=== PATIENT | female | born 1940 | race Caucasian/White ===

== ENCOUNTER 2020-05-08 16:23 | Emergency (ER) | payer MEDICARE, OTHER ==
[2020-05-08] MEDS ORDERED: Sodium Chloride 0.9% 10 ML Syringe FLUSH PRN (17:25)
[2020-05-08] MEDS ORDERED: Iopamidol 755 Mg/ML 75 ML Bottle IV ONE (18:28)
[2020-05-08] MEDS ORDERED: Ondansetron 4 MG/2 ML SDV IVPUSH STA (18:44)
[2020-05-08] MEDS ORDERED: Ondansetron 4 MG/2 ML SDV ONE (18:47)
[2020-05-08] MEDS ORDERED: Sodium Chloride 0.9% 1,000 ML IV SCH (19:15)
[2020-05-08] MEDS ORDERED: Metolazone 2.5 MG Tab PO STA (19:55)
[2020-05-08] MEDS ORDERED: Furosemide 20 MG/2 ML VIAL IVPUSH STA (19:55)
[2020-05-08] MEDS ORDERED: Ondansetron 4 MG/2 ML SDV IV PRN (20:33)
[2020-05-08] MEDS ORDERED: hydrALAZINE 20 MG/ML SDV IVPUSH STA (20:47)
[2020-05-08] MEDS ORDERED: Enoxaparin 40 MG/0.4 ML Syringe SUBCUT SCH (21:00)
[2020-05-08] MEDS ORDERED: Sulfamethoxazole/Trimethoprim 800-160 MG Tab PO SCH (21:00)
[2020-05-08] MEDS ORDERED: Enoxaparin 30 MG/0.3 ML Syringe SUBCUT SCH (21:00)
--- NOTE | 2020-05-08 21:19 | EDM.PDOC ---
ED HPI GENERAL MEDICAL PROBLEM - General Chief Complaint: Cardiovascular Problem Stated Complaint: SOB and edema Time Seen by Provider: 05/08/20 16:30 Source of Information: Reports: Patient, Family History Limitations: Reports: No Limitations - History of Present Illness INITIAL COMMENTS - FREE TEXT/NARRATIVE: Patient is an 80 YO F who presented to the ED because of dyspnea and lower extremity edema which started 2 weeks ago and is progressively getting worse even with mild physical activity. There is no chest pain, nausea,vomiting. There is no fever,chills,cough or cold symptoms. She has a history of HTN,Dyslipidemia, and DM type 2. - Related Data Allergies Allergy/AdvReac Type Severity Reaction Status Date / Time No Known Allergies Allergy Verified 05/08/20 17:43 Home Meds: Home Meds Glimepiride 1.5 tab PO DAILY 05/08/20 [History] Losartan [Cozaar] 1 tab PO DAILY 05/08/20 [History] Pioglitazone [Actos] 1 tab PO DAILY 05/08/20 [History] hydroCHLOROthiazide [Hydrochlorothiazide] 1 tab PO DAILY 05/08/20 [History] Past Medical History HEENT History: Reports: Cataract, Hard of Hearing, Impaired Vision, Other (See Below) Other HEENT History: hearing aids in and glasses on Cardiovascular History: Reports: High Cholesterol, Hypertension Endocrine/Metabolic History: Reports: Diabetes, Type II Hematologic History: Reports: Anemia Social & Family History - Tobacco Use Tobacco Use Status *Q: Never Tobacco User - Caffeine Use Caffeine Use: Reports: Coffee - Recreational Drug Use Recreational Drug Use: No ED ROS GENERAL - Review of Systems Review Of Systems: See Below Constitutional: Reports: Weakness, Fatigue HEENT: Reports: No Symptoms Respiratory: Reports: Shortness of Breath, Cough Cardiovascular: Reports: Edema Endocrine: Reports: No Symptoms GI/Abdominal: Reports: No Symptoms : Reports: No Symptoms Musculoskeletal: Reports: No Symptoms Skin: Reports: No Symptoms Neurological: Reports: No Symptoms Psychiatric: Reports: No Symptoms ED EXAM, GENERAL - Physical Exam Exam: See Below Exam Limited By: No Limitations General Appearance: Alert, No Apparent Distress Eye Exam: Bilateral Eye: PERRL Ears: Normal External Exam, Normal Canal Nose: Normal Inspection, Normal Mucosa, No Blood Throat/Mouth: Normal Inspection, Normal Lips Head: Atraumatic, Normocephalic Neck: Normal Inspection, Supple, Non-Tender Respiratory/Chest: No Respiratory Distress, Crackles Cardiovascular: Normal Peripheral Pulses, Regular Rate, Rhythm, No Edema, No Gallop, No JVD, No Murmur, No Rub GI/Abdominal: Normal Bowel Sounds, Soft, Non-Tender Back Exam: Normal Inspection, Full Range of Motion Extremities: Normal Inspection, Normal Range of Motion, Non-Tender, Pedal Edema Neurological: Alert, Oriented, CN II-XII Intact Psychiatric: Normal Affect Course - Vital Signs Text/Narrative:: Labs/EKG/Chest CT result was reviewed and discussed with patient NS 1 L bolus because of IV contrast use during the chest CT Lasix 40 mg IV x1 Zaroxolyn 2.5 mg po x1 Hydralazine 20 mg IV x1 Code Status: Full Code Case discussed with Dr Jonny Slater-negative Last Recorded V/S: Last Vital Signs Temp 36.9 C 05/08/20 16:25 Pulse 95 05/08/20 16:25 Resp 18 05/08/20 16:25 BP 164/74 H 05/08/20 16:25 Pulse Ox 100 05/08/20 16:25 - Orders/Labs/Meds Labs: Laboratory Tests 05/08/20 05/08/20 05/08/20 Range/Units 17:40 17:40 17:40 WBC 6.0 (3.0-10.3) x10-3/uL RBC 3.05 L (3.60-5.20) x10(6)uL Hgb 8.9 L (11.4-15.5) g/dL Hct 28.1 L (34.2-48.2) % MCV 92.0 (76.7-100.5) fL MCH 29.2 (23.9-33.9) pg MCHC 31.7 L (31.9-34.8) g/dL RDW 16.0 (12.3-16.5) % Plt Count 120 L (151-488) x10(3)uL MPV 9.3 (7.1-12.4) fL Neut % (Auto) 74.0 (30.8-76.2) % Lymph % (Auto) 13.0 L (18.4-52.1) % [place] % (Auto) 9.8 (4.4-15.7) % Eos % (Auto) 2.8 (0.6-8.1) % Baso % (Auto) 0.4 (0.2-1.5) % Neut # (Auto) 4.4 (1.5-6.3) x10-3/uL Lymph # (Auto) 0.8 L (1.0-4.4) x10-3/uL [place] # (Auto) 0.6 (0.3-1.0) x10-3/uL Eos # (Auto) 0.2 (0.0-0.8) x10-3/uL Baso # (Auto) 0.0 (0.0-0.1) x10-3/uL D-Dimer, Quantitative 3.96 H (0.0-0.59) mg/LFEU Sodium 141 (135-145) mmol/L Potassium 3.5 (3.5-5.3) mmol/L Chloride 104 (100-110) mmol/L Carbon Dioxide 26 (21-32) mmol/L BUN 27 H (7-18) mg/dL Creatinine 1.4 H (0.55-1.02) mg/dL Est Cr Clr Drug Dosing TNP Estimated GFR (MDRD) 36 L (>60) BUN/Creatinine Ratio 19.3 (9-20) Glucose 174 H (80-116) mg/dL Calcium 8.6 (8.6-10.2) mg/dL Total Bilirubin 0.9 (0.1-1.3) mg/dL AST 72 H (5-25) IU/L ALT 45 H (12-36) U/L Alkaline Phosphatase 160 H (56-112) IU/L Troponin I (4.0-60.3) pg/mL NT-Pro-B Natriuret Pep (<=450) pg/mL Total Protein 7.8 (6.0-8.0) g/dL Albumin 3.3 (3.2-4.6) g/dL Globulin 4.5 g/dL Albumin/Globulin Ratio 0.7 Urine Color (YELLOW) Urine Appearance (CLEAR) Urine pH (5.0-6.5) Ur Specific Strum (1.010-1.025) Urine Protein (NEGATIVE) mg/dL Urine Glucose (UA) (NORMAL) mg/dL Urine Ketones (NEGATIVE) mg/dL Urine Occult Blood (NEGATIVE) Urine Nitrite (NEGATIVE) Urine Bilirubin (NEGATIVE) Urine Urobilinogen (NEGATIVE) mg/dL Ur Leukocyte Esterase (NEGATIVE) Urine RBC (0-5) Urine WBC (0-5) Ur Squamous Epith Cells (NS,R,O) Urine Bacteria (NS) SARS-CoV-2 RNA (VÍCTOR) (NEGATIVE) 05/08/20 05/08/20 05/08/20 Range/Units 17:40 18:45 20:17 WBC (3.0-10.3) x10-3/uL RBC (3.60-5.20) x10(6)uL Hgb (11.4-15.5) g/dL Hct (34.2-48.2) % MCV (76.7-100.5) fL MCH (23.9-33.9) pg MCHC (31.9-34.8) g/dL RDW (12.3-16.5) % Plt Count (151-488) x10(3)uL MPV (7.1-12.4) fL Neut % (Auto) (30.8-76.2) % Lymph % (Auto) (18.4-52.1) % [place] % (Auto) (4.4-15.7) % Eos % (Auto) (0.6-8.1) % Baso % (Auto) (0.2-1.5) % Neut # (Auto) (1.5-6.3) x10-3/uL Lymph # (Auto) (1.0-4.4) x10-3/uL [place] # (Auto) (0.3-1.0) x10-3/uL Eos # (Auto) (0.0-0.8) x10-3/uL Baso # (Auto) (0.0-0.1) x10-3/uL D-Dimer, Quantitative (0.0-0.59) mg/LFEU Sodium (135-145) mmol/L Potassium (3.5-5.3) mmol/L Chloride (100-110) mmol/L Carbon Dioxide (21-32) mmol/L BUN (7-18) mg/dL Creatinine (0.55-1.02) mg/dL Est Cr Clr Drug Dosing Estimated GFR (MDRD) (>60) BUN/Creatinine Ratio (9-20) Glucose (80-116) mg/dL Calcium (8.6-10.2) mg/dL Total Bilirubin (0.1-1.3) mg/dL AST (5-25) IU/L ALT (12-36) U/L Alkaline Phosphatase (56-112) IU/L Troponin I 13.6 (4.0-60.3) pg/mL NT-Pro-B Natriuret Pep 749 H (<=450) pg/mL Total Protein (6.0-8.0) g/dL Albumin (3.2-4.6) g/dL Globulin g/dL Albumin/Globulin Ratio Urine Color Yellow (YELLOW) Urine Appearance Clear (CLEAR) Urine pH 6.0 (5.0-6.5) Ur Specific [place]rum 1.005 L (1.010-1.025) Urine Protein Negative (NEGATIVE) mg/dL Urine Glucose (UA) Normal (NORMAL) mg/dL Urine Ketones Negative (NEGATIVE) mg/dL Urine Occult Blood Moderate H (NEGATIVE) Urine Nitrite Negative (NEGATIVE) Urine Bilirubin Negative (NEGATIVE) Urine Urobilinogen Normal (NEGATIVE) mg/dL Ur Leukocyte Esterase Large H (NEGATIVE) Urine RBC 5-10 H (0-5) Urine WBC 10-20 H (0-5) Ur Squamous Epith Cells Few H (NS,R,O) Urine Bacteria Moderate H (NS) SARS-CoV-2 RNA (VÍCTOR) Negative (NEGATIVE) Meds: Medications Discontinued Medications Generic Name Dose Route Start Last Admin Trade Name Freq PRN Reason Stop Dose Admin Enoxaparin Sodium 30 mg 05/08/20 21:00 Enoxaparin 30 Mg/0.3 Ml Syringe SUBCUT Q24H NILSA Enoxaparin Sodium 40 mg 05/08/20 21:00 Enoxaparin 40 Mg/0.4 Ml Syringe SUBCUT Q24H NILSA Furosemide 40 mg 05/08/20 19:55 05/08/20 20:10 Furosemide 20 Mg/2 Ml Vial IVPUSH 05/08/20 19:56 40 mg NOW STA Administration Furosemide 40 mg 05/09/20 08:00 Furosemide 40 Mg/4 Ml Vial IVPUSH 05/09/20 08:01 BID ONE Hydralazine HCl 20 mg 05/08/20 20:47 05/08/20 20:54 Hydralazine 20 Mg/Ml Sdv IVPUSH 05/08/20 20:48 20 mg NOW STA Administration Sodium Chloride 1,000 mls @ 999 mls/hr 05/08/20 19:15 05/08/20 19:14 Normal Saline IV 999 mls/hr ASDIRECTED NILSA Administration Iopamidol 75 ml 05/08/20 18:28 05/08/20 19:00 Iopamidol 755 Mg/Ml 75 Ml Bottle IV 05/08/20 18:29 75 ml ASDIRECTED ONE Administration Metolazone 2.5 mg 05/08/20 19:55 05/08/20 20:10 Metolazone 2.5 Mg Tab PO 05/08/20 19:56 2.5 mg NOW STA Administration Ondansetron HCl 4 mg 05/08/20 18:44 05/08/20 18:58 Ondansetron 4 Mg/2 Ml Sdv IVPUSH 05/08/20 18:45 4 mg NOW STA Administration Ondansetron HCl Confirm 05/08/20 18:47 05/08/20 21:40 Ondansetron 4 Mg/2 Ml Sdv Administered 05/08/20 18:48 Not Given Dose 4 mg .ROUTE .STK-MED ONE Ondansetron HCl 4 mg 05/08/20 20:33 Ondansetron 4 Mg/2 Ml Sdv IV Q4H PRN Nausea/Vomiting Sodium Chloride 10 ml 05/08/20 17:25 Sodium Chloride 0.9% 10 Ml Syringe FLUSH ASDIRECTED PRN Keep Vein Open Trimethoprim/Sulfamethoxazole 1 tab 05/08/20 21:00 Sulfamethoxazole/Trimethoprim 800-160 Mg Tab PO BID NILSA Departure - Departure Time of Disposition: 20:00 Disposition: DC/Tfer to Acute Hospital 02 Reason for Transfer *Q: Other (Acute exacerbation of CHF) Condition: Good Clinical Impression: UTI (urinary tract infection), CHF (congestive heart failure), Pleural effusion, Pulmonary edema Referrals: He Muse MD [Primary Care Provider] - Forms: ED Department Discharge Sepsis Event Note (ED) - Evaluation Sepsis Screening Result: No Definite Risk
[2020-05-09] MEDS ORDERED: Furosemide 40 MG/4 ML VIAL IVPUSH ONE (08:00)
--- NOTE | 2020-05-11 12:15 | CR ---
INDICATION: Dyspnea. CHEST ONE VIEW: An AP upright view of the chest portable was obtained - no comparisons. The heart appears somewhat prominent in size with pulmonary vasculature prominent in the upper lung milian and mild interstitial changes suggesting CHF with interstitial lung edema. Additionally, there appears to be a small right pleural effusion with blunting of the right costophrenic angle and possibly very minimally on the left with costophrenic angle blunting. Diaphragm leaves appear to be somewhat flattened with hyperaeration also raising question of COPD additionally. Overlying EKG leads are noted. The aorta is tortuous with calcification in the arch. IMPRESSION: 1. ASHD, cardiomegaly, CHF with interstitial lung edema and small pleural effusions, especially on the right. 2. Possible COPD - correlate clinically. MTDD
== END 2020-05-08 22:20 ==
LOC: FB.ED 16:23
DX: I11.0 Hypertensive heart disease with heart failure (principal); I50.1 Left ventricular failure, unspecified; J90 Pleural effusion, not elsewhere classified; N39.0 Urinary tract infection, site not specified; E11.9 Type 2 diabetes mellitus without complications; Z79.84 Long term (current) use of oral hypoglycemic drugs; Z79.899 Other long term (current) drug therapy; Z20.822 Contact with and (suspected) exposure to COVID-19
CPT/HCPCS: 36415; 71045; 71275; 80053; 81001; 83880; 84484; 85025; 85379; 87086; 93005; 96374; 96375; 99285; A9270; J0360; J1940; J2405; J7030; Q9967; U0002

== ENCOUNTER 2024-05-17 10:03 | Emergency (ER) | payer MEDICARE, OTHER ==
[2024-05-17] MEDS ORDERED: Sodium Chloride 0.9% 10 ML Syringe FLUSH PRN (10:48)
[2024-05-17 11:26] LABS: BASOPHILS PERCENT AUTO 0.2 % (0.2-1.5); EOSINOPHILS ABSOLUTE AUTO 0.2 x10-3/uL (0.0-0.8); EOSINOPHILS PERCENT AUTO 1.9 % (0.6-8.1); HEMATOCRIT 40.2 % (34.2-48.2); LYMPHOCYTES ABSOLUTE AUTO 1.6 x10-3/uL (1.0-4.4); LYMPHOCYTES PERCENT AUTO 20.4 % (18.4-52.1); MEAN CORPUSCULAR HEMOGLOBIN 32.8 pg (23.9-33.9); MEAN CORPUSCULAR HGB CONC 34.9 g/dL (31.9-34.8); MEAN CORPUSCULAR VOLUME 93.9 fL (76.7-100.5); MEAN PLATELET VOLUME 10.4 fL (7.1-12.4); MONOCYTES ABSOLUTE AUTO 0.6 x10-3/uL (0.3-1.0); MONOCYTES PERCENT AUTO 7.1 % (4.4-15.7); NEUTROPHILS ABSOLUTE AUTO 5.6 x10-3/uL (1.5-6.3); NEUTROPHILS PERCENT AUTO 70.4 % (30.8-76.2); PLATELET COUNT,PLT 116 x10(3)uL (151-488); RED BLOOD CELL COUNT 4.28 x10(6)uL (3.60-5.20); RED CELL DISTRIBUTION WIDTH 12.7 % (12.3-16.5)
[2024-05-17] MEDS: Sodium Chloride 0.9% 1,000 ML IV SCH (11:26)
[2024-05-17] MEDS ORDERED: 50% Dextrose in Water 50 ML Syringe IVPUSH PRN (11:33)
[2024-05-17] MEDS ORDERED: Glucagon,Human Recombinant 1 MG Vial IM PRN (11:33)
[2024-05-17 11:40] LABS: A/G RATIO 0.7; ALANINE AMINOTRANSFERASE,ALT 49 U/L (12-36); ALBUMIN 3.2 g/dL (3.2-4.6); ALKALINE PHOSPHATASE 105 IU/L (56-112); ASPARTATE AMNIOTRANSFERASE,AST 47 IU/L (5-25); BILIRUBIN TOTAL 1.1 mg/dL (0.1-1.3); BLOOD UREA NITROGEN,BUN 24 mg/dL (7-18); CALCIUM 8.8 mg/dL (8.6-10.2); CARBON DIOXIDE,CO2 31 mmol/L (21-32); CHLORIDE,CL 95 mmol/L (100-110); CREATININE 1.5 mg/dL (0.55-1.02); EST CRCL DRUG DOSING (CG) 23.09 mL/min; ESTIMATED GFR 34 mL/min (>60); MAGNESIUM 1.9 mg/dL (1.8-2.5); POTASSIUM,K 3.5 mmol/L (3.5-5.3); PROTEIN TOTAL,TP 7.9 g/dL (6.0-8.0); SODIUM,NA 134 mmol/L (135-145)
[2024-05-17] MEDS: Insulin Regular, Human 100 Units/ML 10 ML Vial IV ONE (11:40)
[2024-05-17 11:44] LABS: GLUCOSE RANDOM 496 mg/dL (80-116)
[2024-05-17 12:14] LABS: BILIRUBIN,URINE NEGATIVE (NEGATIVE); GLUCOSE,URINE >1000 mg/dL (NORMAL); KETONES,URINE NEGATIVE (NEGATIVE); LEUKOCYTE ESTERASE,URINE NEGATIVE (NEGATIVE); NITRITE,URINE NEGATIVE (NEGATIVE); OCCULT BLOOD,URINE NEGATIVE (NEGATIVE); PH,URINE 6.5 (5.0-6.5); PROTEIN,URINE NEGATIVE (NEGATIVE); UROBILINOGEN,URINE NORMAL (NEGATIVE)
[2024-05-17 12:16] LABS: APPEARANCE,URINE CLEAR (CLEAR); COLOR,URINE YELLOW (YELLOW)
== END 2024-05-17 14:15 | disposition home or self-care (01) ==
LOC: FB.ED 10:03
DX: E11.65 Type 2 diabetes mellitus with hyperglycemia (principal); E86.0 Dehydration; I12.9 Hypertensive chronic kidney disease with stage 1 through stage 4 chronic kidney disease, or unspecified chronic kidney disease; N18.9 Chronic kidney disease, unspecified; E11.22 Type 2 diabetes mellitus with diabetic chronic kidney disease; Z79.4 Long term (current) use of insulin; Z79.82 Long term (current) use of aspirin; Z79.899 Other long term (current) drug therapy
CPT/HCPCS: 36415; 80053; 81003; 82947; 83735; 85025; 86140; 96360; 99284; 99284-25; A9270-GY; J7030